=== PATIENT | male | born 2000 | race African-American/Black ===

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

== ENCOUNTER 2022-01-30 07:59 | Emergency (ER) | payer MEDICAID ==
[~2022-01-30] VITALS: Ht 185.4 cm; Wt 57.0 kg
[~2022-01-30 07:59] MED LIST changes: +ALBU90AE INH; +FLOV44 INH; +SKEL800 MT; +TOPUD MT
[2022-01-30 08:02] VITALS: BP 127/63
[2022-01-30] MEDS ORDERED: BENZ150C3 MT (08:55)
[2022-01-30] MEDS ORDERED: IBUP-2028 MT (08:55)
[2022-01-30] MEDS ORDERED: IBUPROFEN 600MG TABLET PO ONE (09:00)
[2022-01-30] MEDS ORDERED: ALBU2.5V13 NEB (09:49)
[2022-01-30] MEDS ORDERED: ALBU6.7H3 INH (09:49)
== END 2022-01-30 09:25 | disposition home or self-care (01) ==
LOC: ER 07:59
DX: R10.9 Unspecified abdominal pain (principal); R05.9 Cough, unspecified; J45.909 Unspecified asthma, uncomplicated; Z79.899 Other long term (current) drug therapy
CPT/HCPCS: 99283